=== PATIENT | female | born 1990 | race African-American/Black ===

== ENCOUNTER 2019-09-12 15:39 | Inpatient (IN) | payer OTHER ==
[2019-09-12] MEDS ORDERED: LORazepam 2 MG/ML INJ IV PRN ×3 (15:56)
[2019-09-12 16:29] LABS: Appearance,Urine Clear (Clear); Bilirubin,Urine 1+ (Negative); Blood,Urine Negative (Negative); Color,Urine Yellow; Glucose,Urine (UA) Negative (Negative); Ketones,Urine Negative (Negative); Leukocyte Esterase,Urine Negative (Negative); Nitrite,Urine Negative (Negative); Protein,Urine Trace (Negative); Specific Gravity,Urine 1.019 (1.001-1.035); Urobilinogen,Urine >12.0 mg/dL (<2.0)
--- NOTE | 2019-09-12 16:41 | US ---
EXAMINATION TYPE: US gallbladder DATE OF EXAM: 09/12/2019 COMPARISON: NONE CLINICAL HISTORY: abdominal pain. EXAM MEASUREMENTS: Liver Length: 15.7 cm Gallbladder Wall: 0.4 cm CBD: 0.4 cm Right Kidney: 11.4 x 3.6 x 5.1 cm Pancreas: wnl Liver: wnl Gallbladder: JAEL sign, cholelithiasis, wall slightly thickened Evidence for sonographic Chester's sign: no CBD: wnl Right Kidney: wnl Visualized liver is slightly heterogeneous. Gallbladder shows multiple shadowing mobile gallstones wi th overlying bile. Gallbladder wall is prepped mildly dilated up to 4 mm. No surrounding fluid. IMPRESSION: Confirmation of gallstones with mild gallbladder wall thickening but negative sonographic Chester sign and adjacent surrounding fluid to suggest acute cholecystitis. Consider HIDA scan correl ation.
[2019-09-12] MEDS ORDERED: SODIUM CHLORIDE 0.9% 500 ML 500 ML IV STA (17:21)
[2019-09-12 18:08] LABS: Basophils # (A) 0.1 k/uL (0-0.2); Basophils % (A) 1 %; Eosinophils # (A) 0.1 k/uL (0-0.7); Eosinophils % (A) 3 %; HGB 11.8 gm/dL (11.4-16.0); Lymphocytes # (A) 2.1 k/uL (1.0-4.8); Lymphocytes % (A) 51 %; MCH 30.4 pg (25.0-35.0); MCHC 32.6 g/dL (31.0-37.0); MCV 93.2 fL (80.0-100.0); Mean Platelet Volume 7.5; Monocytes # (A) 0.3 k/uL (0-1.0); Monocytes % (A) 7 %; Neutrophils # (A) 1.5 k/uL (1.3-7.7); Neutrophils % (A) 36 %; Platelet Count 376 k/uL (150-450); RBC 3.86 m/uL (3.80-5.40); RDW 13.9 % (11.5-15.5); WBC 4.2 k/uL (3.8-10.6)
[2019-09-12 18:21] LABS: Acetaminophen <10.0 ug/mL; African American GFR (CKD) >90 (>60 ml/min/1.73 sqM); Albumin 3.7 g/dL (3.5-5.0); Alkaline Phosphatase 135 U/L (38-126); Anion Gap 3 mmol/L; Blood Urea Nitrogen 9 mg/dL (7-17); Calcium 8.8 mg/dL (8.4-10.2); Carbon Dioxide 28 mmol/L (22-30); Chloride 108 mmol/L (98-107); Glucose 92 mg/dL (74-99); Non-African American GFR(CKD) >90 (>60 ml/min/1.73 sqM); Potassium 4.1 mmol/L (3.5-5.1); Sodium 139 mmol/L (137-145); Total Bilirubin 2.1 mg/dL (0.2-1.3); Total Protein 6.6 g/dL (6.3-8.2)
[2019-09-12 18:35] LABS: ALT 840 U/L (4-34); AST 965 U/L (14-36)
--- NOTE | 2019-09-12 19:10 | ED ---
General Adult HPI - General Chief complaint: Abdominal Pain Stated complaint: Abd pain Time Seen by Provider: 09/12/19 15:42 Source: patient, EMS, RN notes reviewed, old records reviewed Mode of arrival: EMS Limitations: no limitations - History of Present Illness Initial comments: 29-year-old female patient presents to ED for chief complaint of abdominal pain. Patient was transferred from [facility] in [place]. Patient presented to the hospital with abdominal pain was found to have markedly elevated LFTs and lipase. Was transferred for ultrasound of gallbladder and possible surgical evaluation. Patient reports that she is having chronic abdominal pain one year ago for approximately 6 months. She reports that the symptoms did resolve. Patient reports that for the last 3 days she has been having pain after eating. Reports that the pain is generalized and epigastric region. Also reports she has been having nausea without emesis. Patient does report that she drinks alcohol, however not on daily basis. Denies any chance of being . Denies any other complaints at this time. Systemic: Pt denies fatigue, fever/chills, rash. Pt denies weakness, night sweats, weight loss. Neuro: Pt denies headache, visual disturbances, syncope or pre-syncope. HEENT: Pt denies ocular discharge or irritation, otalgia, rhinorrhea, phary ngitis or notable lymphadenopathy. Cardiopulmonary: Pt denies chest pain, SOB, heart palpitations, dyspnea on exertion. Abdominal/GI: Pt denies abdominal pain, n/v/d. : Pt denies dysuria, burning w/ urination, frequency/urgency. Denies new onset urinary or bowel incontinence. MSK: Pt denies myalgia, loss of strength or function in extremities. Neuro: Pt denies new onset weakness, paresthesias. - Related Data Home Medications Medication Instructions Recorded Confirmed Acetaminophen/Diphenhydramine 1 tab PO HS PRN 09/12/19 09/12/19 [Tylenol PM 500-25mg] Allergies Allergy/AdvReac Type Severity Reaction Status Date / Time No Known Allergies Allergy Verified 09/12/19 18:09 Review of Systems ROS Statement: Those systems with pertinent positive or pertinent negative responses have been documented in the HPI. ROS Other: All systems not noted in ROS Statement are negative. Past Medical History Past Medical History: No Reported History History of Any Multi-Drug Resistant Organisms: None Reported Past Surgical History: No Surgical Hx Reported Past Psychological History: No Psychological Hx Reported Smoking Status: Current every day smoker Past Alcohol Use History: Occasional Past Drug Use History: Marijuana General Exam - General Exam Comments Initial Comments: Constitutional: NAD, AOX3, Pt has pleasant affect. HEENT: NC/AT, trachea midline, neck supple, no lymphadenopathy. Posterior pharynx non erythematous, without exudates. External ears appear normal, without discharge. Mucous membranes moist. Eyes PERRLA, EOM intact. There is no scleral icterus. No pallor noted. Cardiopulmonary: RRR, no murmurs, rubs or gallops, no JVD noted. Lungs CTAB in anterior and posterior dozier. No peripheral edema. Abdominal exam: Abdomen soft and non-distended. Abdomen mildly tender to palpation in epigastric right upper quadrant region. Chester sign negative.. Bowel sounds active in LLQ. No hepatosplenomegaly. No ecchymosis Neuro: CN II-XII grossly intact. No nuchal rigidity. No raccon eyes, no trujillo sign, no hemotympanum. No cervical spinal tenderness. MSK: No posterior calf tenderness bilaterally, homans sign negative bilaterally. Posterior tibialis and radial pulse +2 bilaterally. Sensation intact in upper and lower extremities. Full active ROM in upper and lower extremities, 5/5 stregnth. Limitations: no limitations Course Vital Signs 09/12/19 09/12/19 15:41 18:29 Temperature 97.3 F L 97.9 F Pulse Rate 61 60 Respiratory 18 17 Rate Blood Pressure 125/83 105/72 O2 Sat by Pulse 98 100 Oximetry Medical Decision Making - Medical Decision Making 29-year-old female patient presents to ED for evaluation of abdominal pain. Patient is transferred from [facility] in [place]. Reports it has been ongoing for 3 days. Patient vital signs are stable, afebrile. Physical exam displayed abdomen mildly tender to palpation epigastric suprapubic region. Laboratory investigations revealed transaminitis, elevated lipase. Elevated bilirubin. UA is negative, CT is negative. Ultrasound displayed multiple gallstones, no signs of cholecystitis. Patient administered fluid bolus. Patient reports that she has never had hepatitis before. Patient does report that she see a very heavy drinker including drinking up to a gallon of liquor a day. Patient reports that her drinking has decreased in frequency over the last 6 months. However she does to take multiple times per week. Patient reports that the pain began after drinking and she has not drank since. We'll be admitted for surgical consultation and transaminitis. Case discussed with Dr. Izquierdo. - Lab Data Result diagrams: 09/12/19 17:47 09/12/19 17:47 Lab Results 09/12/19 09/12/19 09/12/19 Range/Units 16:10 16:10 17:47 WBC (3.8-10.6) k/uL RBC (3.80-5.40) m/uL Hgb (11.4-16.0) gm/dL Hct (34.0-46.0) % MCV (80.0-100.0) fL MCH (25.0-35.0) pg MCHC (31.0-37.0) g/dL RDW (11.5-15.5) % Plt Count (150-450) k/uL Neutrophils % % Lymphocytes % % Monocytes % % Eosinophils % % Basophils % % Neutrophils # (1.3-7.7) k/uL Lymphocytes # (1.0-4.8) k/uL Monocytes # (0-1.0) k/uL Eosinophils # (0-0.7) k/uL Basophils # (0-0.2) k/uL Sodium 139 (137-145) mmol/L Potassium 4.1 (3.5-5.1) mmol/L Chloride 108 H (98-107) mmol/L Carbon Dioxide 28 (22-30) mmol/L Anion Gap 3 mmol/L BUN 9 (7-17) mg/dL Creatinine 0.72 (0.52-1.04) mg/dL Est GFR (CKD-EPI)AfAm >90 (>60 ml/min/1.73 sqM) Est GFR (CKD-EPI)NonAf >90 (>60 ml/min/1.73 sqM) Glucose 92 (74-99) mg/dL Plasma Lactic Acid Compa (0.7-2.0) mmol/L Calcium 8.8 (8.4-10.2) mg/dL Total Bilirubin 2.1 H (0.2-1.3) mg/dL AST 965 H (14-36) U/L ALT 840 H (4-34) U/L Alkaline Phosphatase 135 H (38-126) U/L Total Protein 6.6 (6.3-8.2) g/dL Albumin 3.7 (3.5-5.0) g/dL Lipase (23-300) U/L Urine Color Yellow Urine Appearance Clear (Clear) Urine pH 7.0 (5.0-8.0) Ur Specific [place] 1.019 (1.001-1.035) Urine Protein Trace H (Negative) Urine Glucose (UA) Negative (Negative) Urine Ketones Negative (Negative) Urine Blood Negative (Negative) Urine Nitrite Negative (Negative) Urine Bilirubin 1+ H (Negative) Urine Urobilinogen >12.0 (<2.0) mg/dL Ur Leukocyte Esterase Negative (Negative) Urine HCG, Qual Not Detected (Not Detectd) Acetaminophen <10.0 ug/mL 09/12/19 09/12/19 09/12/19 Range/Units 17:47 17:47 17:47 WBC 4.2 (3.8-10.6) k/uL RBC 3.86 (3.80-5.40) m/uL Hgb 11.8 (11.4-16.0) gm/dL Hct 36.0 (34.0-46.0) % MCV 93.2 (80.0-100.0) fL MCH 30.4 (25.0-35.0) pg MCHC 32.6 (31.0-37.0) g/dL RDW 13.9 (11.5-15.5) % Plt Count 376 (150-450) k/uL Neutrophils % 36 % Lymphocytes % 51 % Monocytes % 7 % Eosinophils % 3 % Basophils % 1 % Neutrophils # 1.5 (1.3-7.7) k/uL Lymphocytes # 2.1 (1.0-4.8) k/uL Monocytes # 0.3 (0-1.0) k/uL Eosinophils # 0.1 (0-0.7) k/uL Basophils # 0.1 (0-0.2) k/uL Sodium (137-145) mmol/L Potassium (3.5-5.1) mmol/L Chloride (98-107) mmol/L Carbon Dioxide (22-30) mmol/L Anion Gap mmol/L BUN (7-17) mg/dL Creatinine (0.52-1.04) mg/dL Est GFR (CKD-EPI)AfAm (>60 ml/min/1.73 sqM) Est GFR (CKD-EPI)NonAf (>60 ml/min/1.73 sqM) Glucose (74-99) mg/dL Plasma Lactic Acid Compa 0.6 L (0.7-2.0) mmol/L Calcium (8.4-10.2) mg/dL Total Bilirubin (0.2-1.3) mg/dL AST (14-36) U/L ALT (4-34) U/L Alkaline Phosphatase (38-126) U/L Total Protein (6.3-8.2) g/dL Albumin (3.5-5.0) g/dL Lipase 1273 H (23-300) U/L Urine Color Urine Appearance (Clear) Urine pH (5.0-8.0) Ur Specific [place] (1.001-1.035) Urine Protein (Negative) Urine Glucose (UA) (Negative) Urine Ketones (Negative) Urine Blood (Negative) Urine Nitrite (Negative) Urine Bilirubin (Negative) Urine Urobilinogen (<2.0) mg/dL Ur Leukocyte Esterase (Negative) Urine HCG, Qual (Not Detectd) Acetaminophen ug/mL Disposition Clinical Impression: Transaminitis, Alcoholic pancreatitis Disposition: ADMITTED IP TO THIS HOSP Condition: Serious Is patient prescribed a controlled substance at d/c from ED?: No Referrals: None,Stated [Primary Care Provider] - 1-2 days
[2019-09-12] MEDS ORDERED: THIAMINE 100 MG/ML 2 ML VIAL IM STA (19:18)
[2019-09-12] MEDS: THIAMINE 100 MG TAB PO SCH (19:19)
--- NOTE | 2019-09-12 19:43 | CT ---
EXAMINATION TYPE: CT abdomen pelvis w con DATE OF EXAM: 09/12/2019 COMPARISON: None HISTORY: abdominal pain, nausea, vomiting CT DLP: 667.9 mGycm Automated exposure control for dose reduction was used. CONTRAST: Performed with IV Contrast, patient injected with 100 mL of Isovue 300. Lung bases are clear of infiltrate. There is mild subsegmental atelectasis. Heart size is normal. There is mild periportal edema. There is heterogeneity in the liver on the initial contrast images. B ile ducts are not dilated. There is no pancreatic mass. Spleen is intact. Stomach appears intact. There is no adrenal mass. Kidneys show satisfactory contrast opacification. There is no hydronephrosi s. There is no retroperitoneal adenopathy. Ureters are not dilated. Bladder distends smoothly. There is no inguinal hernia. Uterus is anteverted. There is no free fluid in the pelvis. There is no sign o f a pelvic mass. Appendix appears normal. There is no mesenteric edema. There is no ascites or free a ir. There is no sign of a bowel obstruction. Lumbar vertebra have normal spacing and alignment. Poste rior elements are intact. Bony pelvis appears intact. IMPRESSION: There is mild periportal edema that is nonspecific and could relate to hepatitis. No dilated ducts. N ormal gallbladder. Normal appendix.
[2019-09-12] MEDS ORDERED: SODIUM CHLORIDE 0.9% 1,000 ML IV SCH (19:45)
[2019-09-12] MEDS ORDERED: NALOXONE 0.4 MG/ML 1 ML VIAL IV PRN (19:45)
[2019-09-12 20:11] LABS: Prothrombin Time 10.8 sec (9.0-12.0)
[2019-09-12 20:48] LABS: Hepatitis A Antibody IgM NEGATIVE
[2019-09-12] MEDS ORDERED: MORPHINE SULFATE 2 MG/ML SYRINGE IVP PRN (21:41)
[2019-09-12] MEDS: PANTOPRAZOLE 40 MG TABLET PO SCH (22:06)
[2019-09-12] MEDS: HEPARIN SODIUM,PORCINE 5,000 UNIT/ML 1 ML VIAL SQ SCH (22:06)
[2019-09-12] MEDS ORDERED: SODIUM CHLORIDE 0.9% 1,000 ML IV STA (22:12)
[2019-09-12] MEDS ORDERED: LACTATED RINGERS 1,000 ML IV ONE (22:12)
--- NOTE | 2019-09-12 22:12 | P.HPIM ---
History of Present Illness H&P Date: 09/12/19 Chief Complaint: ABD PAIN 29 year old female with history of alcohol abuse otherwise no significant past medical history patient is having severe abd pain for the past 3-4 days. her pain decreased on friday however, today pain woke her up. for which she went to [facility] where she was found to have high liver enzyme levels and elevated lipase. she was sent to our hospital for liver US. she describes diffuse but mainly epigastric pain and RUQ pain severe sharp 10/10 in severity earlier, radiates to the back and right shoulder. associated with nausea, pain worse with eating , she was taking tylenol PM and helping a little with pain. she also admit to history of heavy alcohol intake on daily basis, however, quit that habbit about 1 year ago , when she started having abd pain at that time, for about 6 months however resolved on its own with avoiding drin anita. this time, she reports pain started on friday when she was drinking, and had vomited once on that day, none bloody none bilious. pain was getting worse everytime she eats since then she has been taking Tylenol PM once or twice a day to help with the pain. Otherwise she denies any GI bleeding, denies any melena, denies any vomiting other than when she was drinking on Friday. She denies any recent travel or sick contacts. She denies any unsanitary food or drink. She denies any history of blood transfusion or IV drug use. She denies any unsafe sexual practices. In the ED her labs showed elevated liver enzymes close to 1000. Elevated alkaline phosphatase elevated bilirubin. Elevated lipase at 1200. Ultrasound of the abdomen suggested gallstones with no evidence of cholecystitis. CT of the abdomen showed normal gallbladder normal common bile duct but suggested periportal edema suspicious of hepatitis. Review of Systems Pertinent positives as noted in HPI. All other systems were reviewed and are negative Past Medical History Past Medical History: No Reported History History of Any Multi-Drug Resistant Organisms: None Reported Past Surgical History: No Surgical Hx Reported Past Psychological History: No Psychological Hx Reported Smoking Status: Current every day smoker Past Alcohol Use History: Occasional Past Drug Use History: Marijuana - Past Family History family Additional Family Medical History / Comment(s): Mother with seizure Medications and Allergies Home Medications Medication Instructions Recorded Confirmed Type Acetaminophen/Diphenhydramine 1 tab PO HS PRN 09/12/19 09/12/19 History [Tylenol PM 500-25mg] Allergies Allergy/AdvReac Type Severity Reaction Status Date / Time No Known Allergies Allergy Verified 09/12/19 18:09 Physical Exam Vitals: Vital Signs Temp Pulse Resp BP Pulse Ox 09/12/19 20:54 97.3 F L 51 L 18 111/72 100 09/12/19 18:29 97.9 F 60 17 105/72 100 09/12/19 15:41 97.3 F L 61 18 125/83 98 Intake and Output 09/12/19 09/12/19 09/12/19 06:59 14:59 22:59 Other: Weight 63.503 kg Constitutional: No acute distress, conversant, pleasant Eyes: Anicteric sclerae, moist conjunctiva, no lid-lag Pupils equal round reactive to light ENMT: NC/AT Oropharynx clear, no erythema, exudates Neck: Supple, FROM, no masses, or JVD No carotid bruits No thyromegaly Lungs: Clear to auscultation Clear to percussion Normal respiratory effort, no accessory muscle use Cardiovascular: Heart regular in rate and rhythm, No murmurs, gallops, or rubs No peripheral edema Abdominal: Soft, epigastric tenderness to deep palpation, Chester sign negative no guarding, rebound or rigidity Abdomen moving with respiration Normoactive bowel sounds No hepatomegaly, No splenomegaly No palpable mass No abdominal wall hernia noted Skin: Normal temperature, tone, texture, turgor No induration No subcutaneous nodules No rash, lesions No ulcers Extremities: No digital cyanosis No clubbing Pedal pulses intact and symmetrical Radial pulses intact and symmetrical No calf tenderness Psychiatric: Alert and oriented to person, place and time Appropriate affect fair judgement Neuro Muscles Strength 5/5 in all 4 extremities Sensation to light touch grossly present throughout Cranial nerves II-XII grossly intact No focal sensory deficits Lymphatics: no palpable cervical or supraclavicular , or inguinal lymph nodes Results CBC & Chem 7: 09/12/19 17:47 09/12/19 17:47 Labs: Abnormal Lab Results - Last 24 Hours (Table) 09/12/19 09/12/19 09/12/19 Range/Units 16:10 17:47 17:47 Chloride 108 H (98-107) mmol/L Plasma Lactic Acid Compa 0.6 L (0.7-2.0) mmol/L Total Bilirubin 2.1 H (0.2-1.3) mg/dL AST 965 H (14-36) U/L ALT 840 H (4-34) U/L Alkaline Phosphatase 135 H (38-126) U/L Lipase (23-300) U/L Urine Protein Trace H (Negative) Urine Bilirubin 1+ H (Negative) 09/12/19 Range/Units 17:47 Chloride (98-107) mmol/L Plasma Lactic Acid Compa (0.7-2.0) mmol/L Total Bilirubin (0.2-1.3) mg/dL AST (14-36) U/L ALT (4-34) U/L Alkaline Phosphatase (38-126) U/L Lipase 1273 H (23-300) U/L Urine Protein (Negative) Urine Bilirubin (Negative) Assessment and Plan Assessment: 29-year-old female admits to binge drinking alcohol has history of alcohol abuse in the past. Currently drinks once weekly but very heavy. Comes in due to 4 day history of abdominal pain transferred to a facility from [facility] due to elevated liver enzymes. Abdominal ultrasound suggested gallstones. CT of the abdomen suggested normal gallbladder and normal common bile duct but showed periportal edema suggestive of hepatitis. Lipase was elevated. Patient admitted for acute pancreatitis and surgical evaluation for gallstones Admitted as an inpatient with anticipated length of stay more than 2 midnight Plan: acute pancreatitis secondary to alcohol abuse Acute alcoholic hepatitis, rule out underlying ischemia, viral hepatitis, Tylenol toxicity alcohol abuse Gall stone Tylenol level negative nothing by mouth IV fluid hydration pain control with opiates PPI Follow-up CMP, hematocrit Patient counseled to quit alcohol abuse Avoid hepatotoxic meds monitor for alcohol withdrawal symptoms Benzos per CIWA scale Thiamine general surgery consult check acute viral hepatitis panel Check liver Doppler ultrasound rule out any underlying ischemia CODE STATUS:full code DVT prophylaxis: heparin subcu 3 times a day Discussed with: Patient, ER, RN Anticipated length of stay more than [address]: home A total of 60 minutes was spent on the care of this complex patient more than 50% of the time was spent in counseling and care coordination.
[2019-09-13] MEDS: HEPARIN SODIUM,PORCINE 5,000 UNIT/ML 1 ML VIAL SQ SCH ×3 (04:52→20:13)
[2019-09-13 07:29] LABS: Basophils % (A) 1 %; Eosinophils # (A) 0.1 k/uL (0-0.7); Eosinophils % (A) 3 %; HCT 37.1 % (34.0-46.0); Lymphocytes # (A) 1.3 k/uL (1.0-4.8); Lymphocytes % (A) 36 %; MCH 30.7 pg (25.0-35.0); MCHC 32.3 g/dL (31.0-37.0); Mean Platelet Volume 7.7; Monocytes # (A) 0.2 k/uL (0-1.0); Monocytes % (A) 5 %; Neutrophils # (A) 1.9 k/uL (1.3-7.7); Neutrophils % (A) 53 %; Platelet Count 389 k/uL (150-450); RBC 3.91 m/uL (3.80-5.40); WBC 3.5 k/uL (3.8-10.6)
[2019-09-13 07:37] LABS: ALT 684 U/L (4-34); AST 503 U/L (14-36); African American GFR (CKD) >90 (>60 ml/min/1.73 sqM); Albumin 3.4 g/dL (3.5-5.0); Alkaline Phosphatase 141 U/L (38-126); Anion Gap 6 mmol/L; Blood Urea Nitrogen 6 mg/dL (7-17); Calcium 8.9 mg/dL (8.4-10.2); Carbon Dioxide 24 mmol/L (22-30); Chloride 108 mmol/L (98-107); Glucose 68 mg/dL (74-99); Non-African American GFR(CKD) >90 (>60 ml/min/1.73 sqM); Potassium 4.2 mmol/L (3.5-5.1); Sodium 138 mmol/L (137-145); Total Bilirubin 3.1 mg/dL (0.2-1.3); Total Protein 6.3 g/dL (6.3-8.2)
[2019-09-13] MEDS: THIAMINE 100 MG TAB PO SCH ×2 (07:58→17:00)
[2019-09-13] MEDS: PANTOPRAZOLE 40 MG TABLET PO SCH (07:58)
[2019-09-13 08:12] VITALS: RESP 16
[2019-09-13] MEDS ORDERED: DEXTROSE 5%-0.9% NACL 1,000 ML IV SCH (08:30)
--- NOTE | 2019-09-13 12:09 | US ---
EXAMINATION TYPE: US liver doppler DATE OF EXAM: 09/13/2019 COMPARISON: US dated 09/12/2019, CT dated 09/12/2019 CLINICAL HISTO RY: blood clot, ischemia. Patient in hospital for epigastric pain after meals x month s EXAM MEASUREMENTS: See RUQ US completed yesterday Liver Length: 15.4 cm Gallbladder Wall: 0.5 cm CBD: 0.4 cm Right Kidney: see US 09/12/2019 RUQ ABDOMINAL ULTRASOUND Pancreas: wnl Liver: periportal wall brightness noted especially left lobe Gallbladder: full of multiple shadowing stones and abnormally thickened wall. Ascites noted? no LIVER DOPPLER ULTRASOUND Grayscale, color Doppler, spectral Doppler imaging performed Portal vein: 7.8mm, wnl Main Portal Vein diameter: 8.3 mm, wnl Flow direction: Hepatopetal Color flow patency seen within the main portal vein: Yes Main portal vein shows a monophasic waveform: Yes Color flow patency seen within the right portal vein: Yes Right portal vein shows a monophasic waveform: Yes Color flow patency seen within the left portal vein: Yes Left portal vein shows a monophasic waveform: Yes Hepatic Artery: wnl, and flow is to liver IVC/Hepatic Veins: wnl, Hepatic Vein Flow is to IVC Color flow patency seen within the IVC: Yes, IVC shows a triphasic waveform: Yes Color flow patency seen within the right hepatic vein: Yes Right hepatic vein shows a triphasic waveform: Yes Color flow patency seen within the middle hepatic vein: Yes Middle hepatic vein shows a triphasic waveform: Yes Color flow patency seen within the left hepatic vein: Yes Left hepatic vein shows a triphasic waveform: Yes Splenic Vein: wnl Splenic vein diameter: 4.1 mm Color flow patency seen within the splenic vein: Yes IMPRESSION: Cholelithiasis, correlate for cholecystitis. Patent hepatic veins, patent portal vein. Co rrelate for possible hepatitis nonspecific periportal edema.
--- NOTE | 2019-09-13 13:30 | P.PN ---
Subjective Progress Note Date: 09/13/19 Principal diagnosis: Pancreatitis Patient was seen and examined. No acute events overnight. Patient reports epigastric pain radiating to the back. Pain is currently 7 out of 10 in severity. No nausea or vomiting. No fever or chills. No chest pain, shortness of breath or palpitations. Objective - Vital Signs Vital signs: Vital Signs Temp 97.9 F 09/13/19 07:00 Pulse 66 09/13/19 07:00 Resp 16 09/13/19 07:00 BP 95/60 09/13/19 07:00 Pulse Ox 100 09/13/19 07:00 Intake & Output 09/12/19 09/13/19 09/13/19 18:59 06:59 18:59 Intake Total 600 Balance 600 Weight 63.503 kg 63.503 kg Intake: Intake, IV Titration 600 Amount Sodium Chloride 0.9% 1, 600 000 ml @ 100 mls/hr IV . Q10H [facility] Rx#:[id number] Other: Voiding Method Toilet # Voids 1 - Exam General: [non toxic], [no distress], [appears at stated age] Derm: [warm], [dry] Head: [atraumatic], [normocephalic], [symmetric] Eyes: [EOMI], [no lid lag], [anicteric sclera] Mouth: [no lip lesion], [mucus membranes moist] Cardiovascular: [S1S2 reg], [no murmur], [positive posterior tibial pulse bilateral], Lungs: [CTA bilateral], [no rhonchi, no rales] , [no accessory muscle use] Abdominal: [soft], [epigastric tenderness to palpation without rebound], [no guarding], [no appreciable organomegaly] Ext: [no gross muscle atrophy], [no edema], [no contractures] Neuro: [no focal neuro deficits] Psych: [Alert], [oriented], [appropriate affect] - Labs CBC & Chem 7: 09/13/19 07:05 09/13/19 07:05 Labs: Abnormal Lab Results - Last 24 Hours (Table) 09/12/19 09/12/19 09/12/19 Range/Units 16:10 17:47 17:47 WBC (3.8-10.6) k/uL Chloride 108 H (98-107) mmol/L BUN (7-17) mg/dL Glucose (74-99) mg/dL Plasma Lactic Acid Compa 0.6 L (0.7-2.0) mmol/L Total Bilirubin 2.1 H (0.2-1.3) mg/dL AST 965 H (14-36) U/L ALT 840 H (4-34) U/L Alkaline Phosphatase 135 H (38-126) U/L Albumin (3.5-5.0) g/dL Lipase (23-300) U/L Urine Protein Trace H (Negative) Urine Bilirubin 1+ H (Negative) 09/12/19 09/13/19 09/13/19 Range/Units 17:47 07:05 07:05 WBC 3.5 L (3.8-10.6) k/uL Chloride 108 H (98-107) mmol/L BUN 6 L (7-17) mg/dL Glucose 68 L (74-99) mg/dL Plasma Lactic Acid Compa (0.7-2.0) mmol/L Total Bilirubin 3.1 H (0.2-1.3) mg/dL AST 503 H (14-36) U/L ALT 684 H (4-34) U/L Alkaline Phosphatase 141 H (38-126) U/L Albumin 3.4 L (3.5-5.0) g/dL Lipase 1273 H (23-300) U/L Urine Protein (Negative) Urine Bilirubin (Negative) Assessment and Plan Assessment: Acute pancreatitis Transaminitis Alcohol abuse Leukopenia Lipase 1273. Plans: D5 normal saline at 150 mL per hour. Morphine as needed for pain. Continue Protonix. Clear liquid diet and advance. Repeat lipase tomorrow morning. Total bilirubin 3.1, AST 503, ALT 684. Likely due to alcohol abuse. Liver ultrasound shows cholelithiasis, correlate for cholecystitis. Plans: Nothing further to do. GI has been consulted for possible ERCP by surgery. Plans: [facility] protocol. Start thiamine. Ativan as needed for alcohol withdrawal. Leukopenia with WBC count of 3.5. Partially dilutional. Also related to alcohol abuse. Plans: Continue to monitor. [Patient is admitted for pancreatitis. Has shown improvement. Diet advance. Likely DC in 2-3 days.]
[2019-09-13] MEDS: SODIUM CHLORIDE 0.9% 1,000 ML IV SCH (13:41)
[2019-09-13] MEDS ORDERED: MORPHINE SULFATE 4 MG/ML SYRINGE IVP PRN (15:12)
--- NOTE | 2019-09-13 16:22 | CONS ---
CONSULTATION DATE OF DICTATION: 09/13/2019 REASON FOR CONSULTATION: Acute pancreatitis and elevated LFTs. HISTORY OF PRESENT ILLNESS: The patient is a 29-year-old pleasant -Tong[place] female admitted to the hospital with acute onset of severe abdominal pain that has been going on for the last few months' duration. The patient states that she has been having this pain mostly in the epigastric area, worse with eating, and has been to the ER several times in the [place] area and was diagnosed with gastroesophageal reflux disease. However, her symptoms have been progressively getting worse in the last 3-4 days. She went to the emergency room at [facility], was told she has elevated LFTs and was transferred to [facility]. She came to the emergency room here and was noted to have lipase of 1273. Bilirubin was 2.1. AST and ALT were 965 and 840, respectively. Today repeat labs show a bilirubin of 3.1 with ALT and AST that are slightly improved. Lipase is down to 480. She also had ultrasound of the gallbladder done that showed evidence of multiple gallstones with no biliary ductal dilation. She is feeling much better today. She reports no fever, chills, night sweats. PAST MEDICAL HISTORY: Past medical history is significant for alcohol use. PAST SURGICAL HISTORY: Unremarkable. MEDICATIONS AT HOME: 1. Zantac as needed. 2. Tylenol PM. ALLERGIES: NO KNOWN DRUG ALLERGIES. SOCIAL HISTORY: Chronic smoker. Occasional alcohol use. FAMILY HISTORY: Mother has seizures. REVIEW OF SYSTEMS: CARDIOPULMONARY: No chest pain or shortness of breath. GENITOURINARY: No dysuria or hematuria. MUSCULOSKELETAL: Unremarkable. SKIN: Unremarkable. ENDOCRINE: Unremarkable. PSYCHIATRIC: Unremarkable. NEUROLOGY: Unremarkable. ENT/VISION: Unremarkable. CONSTITUTIONAL: No recent weight loss. No fever, chills, night sweats. PHYSICAL EXAMINATION: Blood pressure 95/60, pulse rate 66, temperature 97.9. HEENT EXAMINATION: Unremarkable. Conjunctivae pink. Sclerae anicteric. Oral cavity no lesions. NECK: No JVD or lymph node enlargement. CHEST: Clear to auscultation. HEART: Regular rate and rhythm. ABDOMEN: Soft. Bowel sounds are positive. Mild tenderness in the epigastric area. Rest of the abdomen is benign. EXTREMITIES: No pedal edema. SKIN: No rashes. NEUROLOGIC: Alert and oriented x3. No focal deficits. LABS: WBC 4.2, hemoglobin 11.8, platelets normal. Basic metabolic panel was within normal limits. T-bilirubin 2.1. ALT and AST 965 and 840, respectively. Lipase 1273. Today T- bilirubin 3.1. AST and ALT are 503 and 684, respectively. Lipase is down to 480. IMPRESSION: This is a lady admitted to the hospital with chronic intermittent epigastric pain for the last 4 months' duration. She recently started having the pain that has been progressively getting worse for the last 3-4 days. She went to the emergency room at [facility], was noted to have elevated LFTs and transferred to [facility]. Here she had an ultrasound done that showed evidence of gallstones but no biliary duct dilation. Serum transaminases are gradually improving. Bilirubin has increased to 3.1. Most likely we are dealing with a possible CBD stone causing acute gallstone pancreatitis. Lipase has improved today. RECOMMENDATIONS: 1. Repeat labs in the morning. 2. Clear liquid diet. 3. Await recommendations from surgical consultation. 4. If her serum transaminases/bilirubin get worse, we will consider an ERCP during this hospitalization. The plan was discussed with the patient as well as her family who was at the bedside. Thank you for this consultation. MMODL / IJN: [id number] /
[2019-09-13 17:35] LABS: Hepatitis B Core IgM Non-Reactive (Non-Reactive); Hepatitis B Surface Antigen Non-Reactive (Non-Reactive); Hepatitis C IgG Antibody Non-Reactive (Non-Reactive)
[2019-09-14] MEDS: SODIUM CHLORIDE 0.9% 1,000 ML IV SCH ×2 (00:55→08:44)
[2019-09-14] MEDS: HEPARIN SODIUM,PORCINE 5,000 UNIT/ML 1 ML VIAL SQ SCH ×2 (05:38→08:41)
[2019-09-14 08:01] VITALS: BP 120/77; PULSE 71; TEMP 98.3
[2019-09-14 08:06] LABS: ALT 464 U/L (4-34); AST 212 U/L (14-36); African American GFR (CKD) >90 (>60 ml/min/1.73 sqM); Albumin 3.1 g/dL (3.5-5.0); Alkaline Phosphatase 110 U/L (38-126); Anion Gap 7 mmol/L; Blood Urea Nitrogen 3 mg/dL (7-17); Calcium 8.6 mg/dL (8.4-10.2); Carbon Dioxide 22 mmol/L (22-30); Chloride 110 mmol/L (98-107); Glucose 78 mg/dL (74-99); Non-African American GFR(CKD) >90 (>60 ml/min/1.73 sqM); Sodium 139 mmol/L (137-145); Total Bilirubin 1.1 mg/dL (0.2-1.3); Total Protein 5.8 g/dL (6.3-8.2)
--- NOTE | 2019-09-14 08:08 | P.GSCN ---
History of Present Illness Consult date: 09/13/19 Reason for Consult: gallstones, pancreatitis History of present illness: [id number] female who is admitted to the hospital. Patient has complaints of abdominal pain. She was worked up found evidence of cholelithiasis and pigmented. Patient is a history of EtOH abuse. She states she drinks up to a fifth of liquor per day. She currently states her pain is improved. Past Medical History Past Medical History: No Reported History History of Any Multi-Drug Resistant Organisms: None Reported Past Surgical History: No Surgical Hx Reported Additional Past Surgical History / Comment(s): 4 abortions, 1 miscarriage in September 2018 Past Psychological History: No Psychological Hx Reported Smoking Status: Current every day smoker Past Alcohol Use History: Occasional Past Drug Use History: Marijuana - Past Family History family Additional Family Medical History / Comment(s): Mother with seizure, mother diabetic Medications and Allergies Home Medications Medication Instructions Recorded Confirmed Type Acetaminophen/Diphenhydramine 1 tab PO HS PRN 09/12/19 09/12/19 History [Tylenol PM 500-25mg] Allergies Allergy/AdvReac Type Severity Reaction Status Date / Time No Known Allergies Allergy Verified 09/12/19 18:09 Surgical - Exam Vital Signs Temp Pulse Resp BP Pulse Ox 97.3 F L 61 18 125/83 98 09/12/19 15:41 09/12/19 15:41 09/12/19 15:41 09/12/19 15:41 09/12/19 15:41 - General well developed, well nourished, no distress - Eyes PERRL - ENT normal pinna - Neck no masses - Respiratory normal expansion - Cardiovascular Rhythm: regular - Abdomen mild right upper quadrant tenderness Abdomen: soft Results - Labs 09/13/19 07:05 09/13/19 07:05 Abnormal Lab Results - Last 24 Hours (Table) 09/13/19 Range/Units 07:05 Lipase 480 H (23-300) U/L - Imaging US - abdomen: report reviewed (cholelithiasis with gallbladder wall thickening) Additional studies: liver ultrasound shows evidence of cholelithiasis and cholecystitis Assessment and Plan Assessment: pancreatitis Choledocholithiasis Choledocholithiasis History of EtOH abuse Plan: patient will have her liver function tests recheck. If they trend down she will undergo laparoscopic ostectomy. If they remain elevated she will need an ERCP. GI has been consult for consultation.
[2019-09-14] MEDS: PANTOPRAZOLE 40 MG TABLET PO SCH (08:43)
[2019-09-14] MEDS: THIAMINE 100 MG TAB PO SCH (08:43)
--- NOTE | 2019-09-14 10:56 | P.PN ---
Subjective Progress Note Date: 09/14/19 CHIEF COMPLAINT: Pancreatitis, gallstones HISTORY OF PRESENT ILLNESS: Patient examined this morning at the bedside with Dr. Loja. Patient currently denies abdominal pain. Denies nausea or vomiting. Tolerating diet. Bilirubin 1.1. AST 212. ALT 464. Lipase 152. PHYSICAL EXAM: VITAL SIGNS: Reviewed. GENERAL: Well-developed in no acute distress. HEENT: No sclera icterus. Extraocular movements grossly intact. Moist buccal mucosa. Head is atraumatic, normocephalic. ABDOMEN: Soft. Nondistended. Nontender. NEUROLOGIC: Alert and oriented. Cranial nerves II through XII grossly intact. ASSESSMENT: 1. Pancreatitis 2. Cholelithiasis, possible choledocholithiasis 3. Alcohol abuse PLAN: -Continue diet as tolerated -Continue to monitor LFTs. GI service is following -Patient will require laparoscopic cholecystectomy. This will be performed outpatient. Patient may follow up with Dr. Loja post discharge. -Alcohol abstinence recommended Nurse practitioner note has been reviewed by physician. Signing provider agrees with the documented findings, assessment, and plan of care. Objective - Vital Signs Vital signs: Vital Signs Temp 98.3 F 09/14/19 08:01 Pulse 71 09/14/19 08:01 Resp 16 09/14/19 08:01 BP 120/77 09/14/19 08:01 Pulse Ox 99 09/14/19 08:01 Intake & Output 09/13/19 09/14/19 09/14/19 18:59 06:59 18:59 Intake Total 1100 Balance 1100 Intake: Intake, IV Titration 1100 Amount Sodium Chloride 0.9% 1, 1100 000 ml @ 100 mls/hr IV . Q10H LENORA Rx#:[id number] Other: Voiding Method Toilet Toilet # Voids 1 1 - Labs CBC & Chem 7: 09/13/19 07:05 09/14/19 07:14 Labs: Abnormal Lab Results - Last 24 Hours (Table) 09/13/19 09/14/19 Range/Units 07:05 07:14 Chloride 110 H (98-107) mmol/L BUN 3 L (7-17) mg/dL AST 212 H (14-36) U/L ALT 464 H (4-34) U/L Total Protein 5.8 L (6.3-8.2) g/dL Albumin 3.1 L (3.5-5.0) g/dL Lipase 480 H (23-300) U/L
--- NOTE | 2019-09-14 11:16 | PN ---
PROGRESS NOTE DATE OF SERVICE: 09/14/2019 BRIEF HISTORY: The patient is a 29-year-old female admitted to hospital with epigastric pain for the last few days duration. She has been having intermittent episodes of epigastric pain on and off for the last 4 months duration. She was admitted to the hospital and was noted to have elevated LFTs and jaundice with a bilirubin of 3.1. ALT and AST in the range of 600 and 800 respectively. Ultrasound of the abdomen did show evidence of multiple gallstones but no evidence of biliary ductal dilation. This morning she is feeling better. The abdominal pain has significantly improved. Serum transaminases have also improved. Bilirubin is down to 1.1 today. She reports no abdominal pain. No nausea, vomiting. PHYSICAL EXAMINATION: On physical examination, she appears comfortable. No apparent distress. VITAL SIGNS: Stable. Blood pressure is 132/86, pulse 88 per minute and afebrile. HEENT examination unremarkable. Conjunctivae are pink. Sclerae anicteric. Oral cavity no lesions. NECK: No JVD or lymph node enlargement. CHEST: Clear to auscultation. HEART: Regular rate and rhythm. ABDOMEN: Soft. Bowel sounds are positive. No organomegaly. EXTREMITIES: No pedal edema. SKIN: No rashes. NEURO: Alert and oriented x3. No focal deficits. LABS: Labs from this morning T bili is down to 1.1. ALT and AST 284 and 400 respectively. Alkaline phosphatase normal. CBC is within normal limits. IMPRESSION: 1. This is a lady who presents to the hospital with severe epigastric pain on and off for the last 3 to 4 months duration but much worse in the last 4 days, noted to have elevated LFTs and mild jaundice which has significantly improved in the last 3 days. In fact, the T bilirubin has normalized today at 1.1 with improving ALT and AST all indicative of spontaneous passage of the CBD stone. 2. Acute biliary pancreatitis with improving amylase and lipase. RECOMMENDATIONS: 1. No indication for an ERCP at the present time since her serum transaminases and bilirubin have significantly improved. 2. Advance diet as tolerated. 3. Gallbladder surgery as per Dr. Loja's recommendations. At this time we will sign off. Please call us if needed. Thank you for this consultation. MMODL / IJN: [id number] /
--- NOTE | 2019-09-14 11:49 | P.DS ---
Providers Date of admission: 09/12/19 21:52 Expected date of discharge: 09/14/19 Attending physician: Marilia Roman MD Consults: 09/12/19 19:45 Consult Physician Stat Consulting Provider: wDight Loja Consult Reason/Comments: pancreatitis, transaminitis, gallstones Do you want consulting provider notified?: Yes 09/13/19 08:17 Consult Physician Urgent Consulting Provider: Gale Javier Consult Reason/Comments: possible ercp Do you want consulting provider notified?: Yes Primary care physician: Stated None Hospital Course: 21-year-old female with PMH of alcohol abuse presents the ED for severe abdominal pain that has been ongoing for the past 3-4 days. She was found to have an elevated lipase level at [facility] and transferred to [facility] for liver ultrasound. In the ED, patient was noted to have a lipase of 1273. Liver enzymes were elevated with total bilirubin 2.1, AST 965, ALT 840, alkaline phosphatase 135. Acetaminophen level is negative. Acute hepatitis panel was negative. Patient was started on normal saline. She was given morphine as needed for severe pain. She was continued on Protonix. Initially she was nothing by mouth and transitioned to clear liquid diet. With regard to her alcohol abuse, patient was started on CIWA protocol. She was given thiamine and given Ativan as needed for withdrawal. Her lipase trended down to 152 at the time of discharge. Her liver enzymes also improved to total bilirubin of 1.1, AST 212, ALT 464, alkaline phosphatase of 110. Patient was seen and examined. No acute events overnight. Patient reports well-controlled epigastric pain. Able to tolerate clear liquid diet. No nausea or vomiting. She does complain of some chest discomfort in her left breast. Pain is worsened with movement of her chest. She denies chest pain with deep inspiration. Patient states that she is 1 day late on her menses. General: [non toxic], [no distress], [appears at stated age] Derm: [warm], [dry] Head: [atraumatic], [normocephalic], [symmetric] Eyes: [EOMI], [no lid lag], [anicteric sclera] Mouth: [no lip lesion], [mucus membranes moist] Cardiovascular: [S1S2 reg], [no murmur], [positive posterior tibial pulse bilateral], [tenderness in the right upper quadrant breast] Lungs: [CTA bilateral], [no rhonchi, no rales] , [no accessory muscle use] Abdominal: [soft], [ nontender to palpation], [no guarding], [no appreciable organomegaly] Ext: [no gross muscle atrophy], [no edema], [no contractures] Neuro: [ CN II-XI grossly intact], [no focal neuro deficits] Psych: [Alert], [oriented], [appropriate affect] Acute pancreatitis Chest pain likely breast pain with no concerns for ACS Transaminitis Alcohol abuse Leukopenia Lipase 1273-152. Plans: D5 normal saline at 150 mL per hour. Morphine as needed for pain. Continue Protonix. Full liquid diet and advance. Repeat lipase tomorrow morning. Plans: Pain control as above. Check urine test. Total bilirubin 3.1-1.1, AST 503-212, ALT 684-464. Likely due to alcohol abuse. Liver ultrasound shows cholelithiasis, correlate for cholecystitis. Plans: Nothing further to do. GI recommends conservative management. General surgery recommend cholecystectomy but in the outpatient setting. Plans: CIOH protocol. Start thiamine. Ativan as needed for alcohol withdrawal. Leukopenia with WBC count of 3.5. Partially dilutional. Also related to alcohol abuse. Plans: Continue to monitor. [Patient is admitted for pancreatitis. Has shown improvement. Diet advance. Likely DC today if able to tolerate diet.] Pertinent Studies: Gallbladder ultrasound, CT abdomen and pelvis, liver ultrasound Patient Condition at Discharge: Stable Plan - Discharge Summary Discharge Rx Participant: Yes New Discharge Prescriptions: New Hydrocodone/Acetaminophen [[place] 5-325] 1 tab PO Q4HR PRN 3 Days #18 tab PRN Reason: Pain Pantoprazole [Protonix] 40 mg PO AC-BRKFST #30 tablet. Thiamine [Vitamin B-1] 100 mg PO BID-W/MEALS #60 tab Continue Acetaminophen/Diphenhydramine [Tylenol PM 500-25mg] 1 tab PO HS PRN PRN Reason: Pain Discharge Medication List Acetaminophen/Diphenhydramine [Tylenol PM 500-25mg] 1 tab PO HS PRN 09/12/19 [History] Hydrocodone/Acetaminophen [[place] 5-325] 1 tab PO Q4HR PRN 3 Days #18 tab 09/14/19 [Rx] Pantoprazole [Protonix] 40 mg PO AC-BRKFST #30 tablet. 09/14/19 [Rx] Thiamine [Vitamin B-1] 100 mg PO BID-W/MEALS #60 tab 09/14/19 [Rx] Follow up Appointment(s)/Referral(s): None,Stated [Primary Care Provider] - 1-2 days Dwight Loja MD [STAFF PHYSICIAN] - 1 Week Activity/Diet/Wound Care/Special Instructions: Diet: Prentiss low-fat Follow-up PCP within 3 days. Follow-up Gen. surgery within 1 week. Please stop drinking alcohol. Discharge Disposition: HOME SELF-CARE
== END 2019-09-14 13:12 | disposition home or self-care (01) | DRG 439 ==
LOC: EC 15:39 → 4SSUR 21:52
PROVIDERS: ADMIT Internal Medicine; ATTEND Internal Medicine
PROC: HZ2ZZZZ Detoxification Services for Substance Abuse Treatment (ICD-10-PCS; principal; 2019-09-12)
DX: K85.20 Alcohol induced acute pancreatitis without necrosis or infection (principal); F10.239 Alcohol dependence with withdrawal, unspecified; N64.4 Mastodynia; K80.70 Calculus of gallbladder and bile duct without cholecystitis without obstruction; F17.200 Nicotine dependence, unspecified, uncomplicated; K70.10 Alcoholic hepatitis without ascites; K21.9 Gastro-esophageal reflux disease without esophagitis; T39.1X5A Adverse effect of 4-Aminophenol derivatives, initial encounter; Z98.890 Other specified postprocedural states; Z79.899 Other long term (current) drug therapy; Z83.3 Family history of diabetes mellitus; Z82.0 Family history of epilepsy and other diseases of the nervous system
CPT/HCPCS: 36415; 74177; 76705; 80053; 80074; 80329; 81003; 81025; 83605; 83690; 85025; 85610; 93976; 96360; 99285

== ENCOUNTER 2019-10-18 08:00 | Observation (INO) | payer OTHER ==
[2019-10-14 10:15] VITALS: BMI 26.9
[~2019-10-18 08:00] MED LIST: DEXAMETHASONE SOD PHOSPHATE 10 MG/ML 1 ML VIAL IV ONE; HEPARIN SODIUM,PORCINE 5,000 UNIT/ML 1 ML VIAL SQ ONE; HYDROmorphone 0.5 MG/0.5 ML SYRINGE IVP PRN; LACTATED RINGERS 1,000 ML IV SCH; MIDAZOLAM 2 MG/2 ML VIAL IV PRN; ONDANSETRON 4 MG/2 ML VIAL IVP ONE; SCOPOLAMINE 1.5MG/72HR PATCH TRANSDERM ONE
--- NOTE | 2019-10-18 09:27 | P.GSHP ---
History of Present Illness H&P Date: 10/18/19 Chief Complaint: Cholelithiasis The 21-year-old female who presents today for laparoscopic cholestatic. Patient's had a recent admission for right upper quadrant pain close cholecystitis. Is found have gallstones. Patient also has a history of alcohol abuse. Past Medical History Past Medical History: Liver Disease Additional Past Medical History / Comment(s): states had pancreatitis and gallstones History of Any Multi-Drug Resistant Organisms: None Reported Past Surgical History: No Surgical Hx Reported Additional Past Surgical History / Comment(s): . Past Anesthesia/Blood Transfusion Reactions: No Reported Reaction Smoking Status: Current every day smoker - Past Family History family Additional Family Medical History / Comment(s): Mother with seizure, mother diabetic Medications and Allergies Home Medications Medication Instructions Recorded Confirmed Type Acetaminophen [Tylenol Extra 500 mg PO DIRECTED PRN 10/14/19 10/18/19 History Strength] Allergies Allergy/AdvReac Type Severity Reaction Status Date / Time No Known Allergies Allergy Verified 10/18/19 08:33 Surgical - Exam Vital Signs Temp Pulse Resp BP Pulse Ox 97.6 F 71 16 126/74 100 10/18/19 08:32 10/18/19 08:32 10/18/19 08:32 10/18/19 08:32 10/18/19 08:32 - General well developed, well nourished, no distress - Eyes PERRL - ENT normal pinna - Neck no masses - Respiratory normal expansion - Cardiovascular Rhythm: regular - Abdomen Abdomen: soft, non tender Assessment and Plan Assessment: Cholecystitis Cholelithiasis We'll perform laparoscopic cholecystectomy
[2019-10-18] MEDS ORDERED: GLYCOPYRROLATE 0.2 MG/ML 2 ML VIAL ONE (09:59)
[2019-10-18] MEDS ORDERED: KETOROLAC 30 MG/ML 1 ML VIAL ONE (09:59)
[2019-10-18] MEDS ORDERED: ROCURONIUM BROMIDE 10 MG/ML 10 ML VIAL IV ONE (09:59)
[2019-10-18] MEDS ORDERED: SUCCINYLCHOLINE CHLORIDE 100 MG/5 ML SYR IV ONE (09:59)
[2019-10-18] MEDS ORDERED: fentaNYL (PF) 50 MCG/ML 2 ML AMP ONE (09:59)
[2019-10-18] MEDS ORDERED: HYDROmorphone (PF) 1 MG/ML ONE (09:59)
[2019-10-18] MEDS ORDERED: PROPOFOL 10 MG/ML 20 ML VIAL IV ONE (09:59)
[2019-10-18] MEDS ORDERED: MIDAZOLAM 2 MG/2 ML VIAL ONE (09:59)
[2019-10-18] MEDS ORDERED: NEOSTIGMINE 1 MG/ML 10 ML VIAL ONE (09:59)
[2019-10-18] MEDS ORDERED: LIDOCAINE 1% INJ 10MG/ML (20 ML MDV) ONE (09:59)
[2019-10-18] MEDS ORDERED: BUPIVACAINE (PF) 0.5% 30 ML VIAL SQ ONE (10:14)
[2019-10-18] MEDS ORDERED: ONDANSETRON 4 MG/2 ML VIAL IVP PRN (10:55)
[2019-10-18] MEDS ORDERED: LACTATED RINGERS 1,000 ML IV ONE (10:55)
[2019-10-18] MEDS ORDERED: NALOXONE 0.4 MG/ML 1 ML VIAL IV PRN (10:55)
[2019-10-18] MEDS ORDERED: diphenhydrAMINE 50 MG/ML 1 ML VIAL IVP ONE (11:23)
--- NOTE | 2019-10-18 11:35 | P.OP ---
Date of Procedure: 10/18/19 Preoperative Diagnosis: Cholecystitis Postoperative Diagnosis: Cholecystitis Procedure(s) Performed: Laparoscopic cholecystectomy Anesthesia: MARGARITO Surgeon: Dwight Loja Estimated Blood Loss (ml): 5 Pathology: other (Gallbladder) Condition: stable Disposition: PACU Description of Procedure: The patient was placed on the operating table. The patient received a general endotracheal tube anesthesia. The patients abdomen was prepped and draped in the usual sterile fashion. Through an infraumbilical stab incision, the fascia of the anterior abdominal wall was grasped with a pair of Kochers and then the Veress needle was placed in the peritoneal cavity. Position of the Veress needle was confirmed with positive drop test. The abdomen was then insufflated. After adequate insufflation, the 10 mm trocar was placed in the peritoneal cavity. Following this the laparoscope was placed in the peritoneal cavity. The patient was placed in the head-up, right side up position and then a 5 mm trocar was placed in the right lateral and right subcostal position under direct visualization. A 8 mm trocar was placed in the epigastric position. The gallbladder was grasped in the fundus and infundibulum. Traction on the gallbladder was placed in the lateral and the cephalad positions. The triangle of Calot was visualized.. The cystic duct was bluntly dissected until the union of the cystic duct and common bile duct was seen. A critical view of safety was achieved. The cystic duct was then divided and sealed with the Harmonic scissors. A PDS Endoloop was then placed throughout the cystic duct stump. The cystic artery divided and sealed with the Harmonic scissors. The gallbladder was then removed from the liver bed using Harmonic scissors. The gallbladder was then extracted through the epigastric port site. Operative field was checked for any bleeding spots and Harmonic scissors was used to coagulate the liver bed. The abdomen was irrigated. The trocars were removed. The skin was closed using interrupted 3-0 Vicryl suture. Dermabond dressing were applied. The patient tolerated the procedure well.
[2019-10-18] MEDS: HYDROcodone/APAP 5-325MG 1 EACH TAB PO PRN ×2 (12:35→18:31)
[2019-10-18] MEDS: HYDROmorphone 0.5 MG/0.5 ML SYRINGE IVP PRN ×3 (15:17→23:41)
[2019-10-19] MEDS: HYDROmorphone 0.5 MG/0.5 ML SYRINGE IVP PRN (02:38)
[2019-10-19] MEDS: HYDROcodone/APAP 5-325MG 1 EACH TAB PO PRN (07:36)
[2019-10-19 07:47] VITALS: BP 102/55; PULSE 61; RESP 18; TEMP 98.3
[2019-10-19] MEDS ORDERED: ENOXAPARIN 40 MG/0.4 ML SYRINGE SQ SCH (09:00)
--- NOTE | 2019-10-19 09:12 | P.CONS ---
History of Present Illness - Reason for Consult Consult date: 10/18/19 medical management Requesting physician: Diwght Loja - History of Present Illness consult was not called to our service at time of request Past Medical History Past Medical History: Liver Disease Additional Past Medical History / Comment(s): states had pancreatitis and gallstones History of Any Multi-Drug Resistant Organisms: None Reported Past Surgical History: No Surgical Hx Reported Additional Past Surgical History / Comment(s): . Past Anesthesia/Blood Transfusion Reactions: No Reported Reaction Past Psychological History: Anxiety Smoking Status: Current every day smoker Past Alcohol Use History: Occasional Additional Past Alcohol Use History / Comment(s): states smokes 8-9 cigarettes daily, states has not had alchohol since hospitalization 09/12/19 Past Drug Use History: Marijuana Additional Drug Use History / Comment(s): instructed to hold 24hrs prior to procedure - Past Family History family Additional Family Medical History / Comment(s): Mother with seizure, mother diabetic Medications and Allergies Home Medications Medication Instructions Recorded Confirmed Type Acetaminophen [Tylenol Extra 500 mg PO DIRECTED PRN 10/14/19 10/18/19 History Strength] Hydrocodone/Acetaminophen [[place] 1 tab PO Q6HR PRN #10 tab 10/19/19 Rx 5-325] Allergies Allergy/AdvReac Type Severity Reaction Status Date / Time No Known Allergies Allergy Verified 10/18/19 08:33 Physical Exam Vitals: Vital Signs Temp Pulse Pulse Resp BP Pulse Ox 10/19/19 07:46 98.3 F 61 18 102/55 10/19/19 00:00 97.6 F 63 20 114/68 97 10/18/19 20:00 98.2 F 75 18 110/65 99 10/18/19 15:15 98.1 F 93 16 103/58 97 10/18/19 14:45 72 16 105/64 98 10/18/19 14:15 83 16 105/62 97 10/18/19 13:45 73 16 110/66 96 10/18/19 13:15 64 16 105/65 97 10/18/19 13:00 68 16 107/66 96 10/18/19 12:45 71 16 96/59 97 10/18/19 12:30 77 16 111/71 98 10/18/19 12:15 98.1 F 63 16 106/62 96 10/18/19 11:39 81 16 120/64 97 10/18/19 11:24 88 16 118/64 100 10/18/19 11:09 97.9 F 121 H 16 120/65 98 Intake and Output 10/18/19 10/19/19 10/19/19 22:59 06:59 14:59 Other: # Voids 1
--- NOTE | 2019-10-19 10:53 | P.DS ---
Providers Date of admission: 10/18/19 22:40 Expected date of discharge: 10/19/19 Attending physician: Dwight Loja Consults: 10/18/19 10:55 Consult Physician Routine Consulting Provider: Evelyn Harris Consult Reason/Comments: Medical management Do you want consulting provider notified?: Yes Primary care physician: Stated None Hospital Course: 29-year-old female who underwent laparoscopic cholecystectomy Dr. Loja. Patient is doing well postoperatively without any immediate complications. She is stable for discharge home today. Please see EMR for further hospital course details. Discharge diagnosis Cholecystitis, status post laparoscopic cholecystectomy Nurse practitioner note has been reviewed by physician. Signing provider agrees with the documented findings, assessment, and plan of care. Plan - Discharge Summary Discharge Rx Participant: Yes New Discharge Prescriptions: New Hydrocodone/Acetaminophen [[place] 5-325] 1 tab PO Q6HR PRN #10 tab PRN Reason: Pain No Action Acetaminophen [Tylenol Extra Strength] 500 mg PO DIRECTED PRN PRN Reason: Pain Discharge Medication List Acetaminophen [Tylenol Extra Strength] 500 mg PO DIRECTED PRN 10/14/19 [History] Hydrocodone/Acetaminophen [[place] 5-325] 1 tab PO Q6HR PRN #10 tab 10/19/19 [Rx] Follow up Appointment(s)/Referral(s): Dwight Loja MD [STAFF PHYSICIAN] - 10/26/19 3:30 pm Activity/Diet/Wound Care/Special Instructions: No driving while taking [place] No lifting over 10 pounds You may shower. No soaking or tub baths Very light activity until you are reevaluated at your follow up appointment with your surgeon
== END 2019-10-19 11:05 | disposition home or self-care (01) ==
LOC: OR 08:00 → 4FBP 10:53 → OR 22:40
PROVIDERS: ADMIT Surgery; ATTEND Surgery
DX: K80.12 Calculus of gallbladder with acute and chronic cholecystitis without obstruction (principal); F17.200 Nicotine dependence, unspecified, uncomplicated; Z83.3 Family history of diabetes mellitus
CPT/HCPCS: 81025; 88304; 47562; G0378 ×2; J2250; J1200; J1644; J1100; J2710; J0690; J2405; J2001; J3010; J1885; J1170 ×3; J0330; J2704